=== PATIENT | female | born 1965 | race Caucasian/White ===

== ENCOUNTER → 2017-02-16 | Outpatient (CLI) | payer BC, OTHER ==
[~2017-02-16] MED LIST: DIVIGEL0.25 MG; FLONASE16 GM; TRAMADOL 50 MG50 MG PO; TRAZODONE 150150 M1 PO; VALTREX 500 MG500 M1 PO; WELLBUTRIN SR150 MG PO
--- NOTE | ~2017-02-16 | 2DMMODE ---
[facility] [place] [address] 2 D/M-MODE ECHOCARDIOGRAM Name: RAFAELKAROLINA RICHAR Room #: [facility]#: [id number] Admission: 02/16/17 Attend Phys: [place] Discharge: Date of : 67 Date of Service: 02/16/17 1526 Report #: [id number] THIS REPORT FOR: //name// APPROVED REPORT Study performed: 02/16/2017 13:13:29 EXAM: Comprehensive 2D, Doppler, and color-flow Echocardiogram Patient Location: Out-Patient Status: routine Other Information Study Quality: Adequate Technically limited study due to Breast Implants. Indications Arrhythmia 2D Dimensions RVDd: 31.31 mm LVEF(%): 62.47 (>50%) IVSd: 8.49 (7-11mm) LVOT Diam: 21.02 (18-24mm) LVDd: 40.46 mm PWd: 8.15 (7-11mm) Ascending Ao: 26.40 (22-36mm) LVDs: 26.99 (25-40mm) Aortic Root: 26.23 mm Beasley's LVEF: 62.47 % Volumes Left Atrial Volume (Systole) Single Plane 4CH: 36.34 mL Single Plane 2CH: 34.44 mL LA ESV Index: 23.00 mL/m2 Aortic Valve AoV Peak Brayden.: 1.36 m/s AO Peak Gr.: 7.42 mmHg LVOT Max P.74 mmHg LVOT Max V: 1.09 m/s KINGS Vmax: 2.77 cm2 Mitral Valve E/A Ratio: 1.2 MV Decel. Time: 134.89 ms MV E Max Brayden.: 0.79 m/s MV A Brayden.: 0.65 m/s [facility] [place] [address] 2 D/M-MODE ECHOCARDIOGRAM Name: KAROLINA HALL Room #: [facility]#: [id number] Admission: 02/16/17 Attend Phys: Good Green Discharge: Date of : 67 Date of Service: 02/16/17 1526 Report #: [id number] MV PHT: 39.12 ms IVRT: 106.11 ms Pulmonary Vein P Vein S: 0.63 m/s P Vein D: 0.61 m/s P Vein S/D Ratio: 1.03 Tricuspid Valve RAP Estimate: 5.00 mmHg Left Ventricle The left ventricle is normal size. There is normal LV segmental wall motion. There is normal left ventricular wall thickness. The left ventricular systolic function is normal. The left ventricular ejection fraction is within the normal range. LVEF is 55-60%. The left ventricular diastolic function is normal. Right Ventricle The right ventricle is normal size. The right ventricular systolic function is normal. Atria The left atrium size is normal. The right atrium size is normal. Aortic Valve The aortic valve is normal in structure. Trace aortic regurgitation. There is no aortic valvular stenosis. Mitral Valve The mitral valve is normal in structure. There is no mitral valve regurgitation noted. No evidence of mitral valve stenosis. Tricuspid Valve The tricuspid valve is normal in structure. There is no tricuspid valve regurgitation noted. Pulmonic Valve The pulmonary valve is normal in structure. There is no pulmonic valvular regurgitation. Great Vessels The aortic root is normal in size. The ascending aorta is normal in size. IVC is normal in size and collapses >50% with inspiration. [facility] [address] [place] [address] 2 D/M-MODE ECHOCARDIOGRAM Name: KAROLINA HALL Room #: [facility]#: [id number] Admission: 02/16/17 Attend Phys: Good Green Discharge: Date of : 67 Date of Service: 02/16/17 1526 Report #: [id number] Pericardium There is no pericardial effusion. <Conclusion> The left ventricle is normal size. LVEF is 55-60%. The aortic valve is normal in structure. Trace aortic regurgitation. The mitral valve is normal in structure. The tricuspid valve is normal in structure. <ELECTRONICALLY SIGNED> By: Sly Shea MD 02/16/17 1526 1526 1526 Sly Shea MD /INF
== END ==
LOC: CV 09:34
DX: I49.9 Cardiac arrhythmia, unspecified (principal)

== ENCOUNTER → 2020-07-11 | Outpatient (CLI) | payer OTHER | LOC: LAB 13:29 | PROVIDERS: ATTEND Family Medicine | DX: Z20.828 Contact with and (suspected) exposure to other viral communicable diseases (principal) ==